=== PATIENT | female | born 1970 | race African-American/Black ===

== ENCOUNTER 2019-07-13 11:41 | Emergency (ER) | payer BC, MEDICAID ==
[2019-07-13 12:09] VITALS: BP 187/97
[2019-07-13] MEDS ORDERED: KETOROLAC TROMETHAMINE 60 MG/2 ML SDV IM ONE (12:24)
[2019-07-13] MEDS ORDERED: HYDROCHLOROTHIAZIDE 25 MG TABLET PO ONE (12:25)
[2019-07-13] MEDS ORDERED: LISINOPRIL 10 MG TABLET PO ONE ×2 (12:25→12:26)
--- NOTE | 2019-07-13 12:25 | ER Document Report ---
HPI - HPI Patient complains to provider of: Body aches Time Seen by Provider: 07/13/19 12:19 Pain Level: 5 Notes: 49-year-old female to the emergency department with complaints of generalized body aches, mild cough, fatigue that began yesterday. She states that she has felt so badly that she has had to stay with her mom's house. She states that she has not had a fever that she knows of. She states that she did not have a flu shot this season. She states that she is unsure if she has had a sick contact. She denies any chest pain, shortness of breath, abdominal pain, nausea vomiting or diarrhea. - ROS Systems Reviewed and Negative: Yes All other systems reviewed and negative - CONSTITUTIONAL Constitutional: DENIES: Fever, Chills Notes: Positive for fatigue - EENT EENT: REPORTS: Nasal Drainage-Clear. DENIES: Sore Throat, Ear Pain, Nasal Drainage-Purulent, Congestion - NEURO Neurology: DENIES: Headache - CARDIOVASCULAR Cardiovascular: DENIES: Chest pain - RESPIRATORY Respiratory: REPORTS: Coughing. DENIES: Trouble Breathing - GASTROINTESTINAL Gastrointestinal: DENIES: Abdominal Pain, Nausea, Patient vomiting, Diarrhea, Constipation - MUSCULOSKELETAL Musculoskeletal: REPORTS: Extremity pain - Generalized body aches - DERM Skin Color: Normal Skin Problems: None Past Medical History - General Information source: Patient - Social History Smoking Status: Never Smoker Chew tobacco use (# tins/day): No Frequency of alcohol use: None Drug Abuse: None Lives with: Family Family History: Reviewed & Not Pertinent Patient has suicidal ideation: No Patient has homicidal ideation: No - Past Medical History Cardiac Medical History: Reports: Hx Hypertension Past Surgical History: Reports: Hx Section - Immunizations Hx Diphtheria, Pertussis, Tetanus Vaccination: No Vertical Provider Document - CONSTITUTIONAL Agree With Documented VS: Yes Exam Limitations: No Limitations General Appearance: WD/WN, No Apparent Distress - INFECTION CONTROL TRAVEL OUTSIDE OF THE [place] IN LAST 30 DAYS: No - HEENT HEENT: Atraumatic, Normal ENT Exam, PERRLA - NECK Neck: Normal Inspection, Supple, Thyroid Normal. negative: Lymphadenopathy- Left, Lymphadenopathy-Right - RESPIRATORY Respiratory: Breath Sounds Normal. negative: Rales, Rhonchi, Wheezing - CARDIOVASCULAR Cardiovascular: Regular Rate, Regular Rhythm - GI/ABDOMEN Gastrointestinal: Abdomen Soft, Abdomen Non-Tender - BACK Back: Normal Inspection. negative: CVA Tenderness-Right, CVA Tenderness-Left - MUSCULOSKELETAL/EXTREMETIES Musculoskeletal/Extremeties: MAEW, FROM, Non-Tender - NEURO Level of Consciousness: Awake, Alert, Appropriate Motor/Sensory: No Motor Deficit, No Sensory Deficit - DERM Integumentary: Warm, Dry, No Rash Course - Re-evaluation Re-evalutation: 07/13/19 Impression: Influenza B. Discussed Tamiflu with the patient and she would like to try it. She is aware of the diarrhea side effect profile. Will send home with cough medicine and advised Tylenol and Motrin for body aches and any fevers. Patient agrees with the plan. PCP follow-up and return if worse. Patient also requests refill of her lisinopril 40 mg. She has known high blood pressure and ran out of it yesterday. - Vital Signs Vital signs: Temp Pulse Resp BP Pulse Ox 99.8 F 86 18 187/97 H 100 07/13/19 12:09 07/13/19 12:09 07/13/19 12:07/13/19 12:07/13/19 12:09 - Diagnostic Test Radiology reviewed: Image reviewed, Reports reviewed Discharge - Discharge Clinical Impression: Influenza B, Generalized body aches, Medication refill Hypertension Qualifiers: Hypertension type: essential hypertension Qualified Code(s): I10 - Essential (primary) hypertension Condition: Stable Disposition: HOME, SELF-CARE Instructions: Influenza ([facility]) Additional Instructions: Push fluids to include Gatorade, Pedialyte, Powerade. Monitor your temperature and alternate between Tylenol and Motrin for fever control. These will also help with your body aches. He may take 1000 mg of Tylenol every 6 hours and 800 mg of Motrin every 8. Return if any worsening symptoms. You have chosen to try Tamiflu. Tamiflu is the medicine for influenza a and B. It does have a side effect profile of diarrhea. If the diarrhea gets severe please stop. Prescriptions: Ibuprofen [Motrin 800 mg Tablet] 800 mg PO Q8H PRN #30 tab PRN Reason: Promethazine/Dextromethorphan [Promethazine-Dm Syrup] 5 ml PO Q6H #120 ml Oseltamivir Phosphate [Tamiflu 75 mg Capsule] 75 mg PO BID #10 capsule Lisinopril [Zestril] 40 mg PO DAILY #30 tablet Forms: Return to Work Referrals: IMANI GERMAN MD [Primary Care Provider] - Follow up in 3-5 days
[2019-07-13 13:01] LABS: A TYPE INFLUENZA AG NEGATIVE (NEGATIVE); B INFLUENZA AG POSITIVE (NEGATIVE)
== END 2019-07-13 13:41 | disposition home or self-care (01) ==
LOC: ER 11:41
DX: J11.1 Influenza due to unidentified influenza virus with other respiratory manifestations (principal); M79.10 Myalgia, unspecified site; I10 Essential (primary) hypertension; R05 Cough; R53.83 Other fatigue
CPT/HCPCS: 87804; J1885